=== PATIENT | female | born 1980 | race Two or more races ===

== ENCOUNTER 2025-05-13 10:50 | Emergency (ER) | payer BC ==
[~2025-05-13] VITALS: Ht 162.6 cm; Wt 90.7 kg
[2025-05-13] MEDS: IV NS 0.9% 1,000 ML BAG IV ONE (11:30)
[2025-05-13 11:45] LABS: PLATELET COUNT (AUTO) 97 K/uL (150-450); RED BLOOD CELL COUNT(AUTO) 3.41 MIL/uL (4.0-5.2); RED CELL DISTRIBUTION WIDTH 16.3 % (11.5-15.0); WHITE BLOOD COUNT (AUTO) 2.7 K/uL (4.3-11.0)
[2025-05-13 11:53] LABS: CALCIUM, SERUM 9.0 mg/dL (8.5-10.1); CREATININE 1.0 mg/dL (0.6-1.3); SODIUM SERUM 139 mmol/L (136-145); UREA NITROGEN, BLOOD 20 mg/dL (7-18)
[2025-05-13 11:59] LABS: ASPARTATE AMINOTRANSFERASE 31 U/L (15-37); TOTAL PROTEIN, SERUM 7.0 g/dL (6.4-8.2)
[2025-05-13 12:21] LABS: EOSINOPHILS % (MANUAL) 1 % (0-4); LYMPHOCYTES % (MANUAL) 21 % (16-48); MONOCYTES % (MANUAL) 13 % (0-11.0); NEUTROPHILS % (MANUAL) 65 (42-76); PLATELET ESTIMATE DECREASED
[2025-05-13 13:59] VITALS: BP 130/74; TEMP 98.4; O2SAT 98
== END 2025-05-13 13:59 | disposition home or self-care (01) ==
LOC: ER 10:58
DX: R56.9 Unspecified convulsions (principal); I10 Essential (primary) hypertension; R10.20 Pelvic and perineal pain unspecified side
CPT/HCPCS: 99284; 96360; 93005; 85027; 80048; 80076; 85007; 36415; 84484; 84702; J7030

== ENCOUNTER 2025-05-20 12:55 | Emergency (ER) | payer BC ==
[~2025-05-20] VITALS: Ht 162.6 cm; Wt 90.7 kg
[2025-05-20 13:00] VITALS: TEMP 98.3
[2025-05-20 14:52] LABS: APPEARANCE,URINE CLEAR (CLEAR); BLOOD, URINE Negative Ery/uL (NEGATIVE); LEUKOCYTE ESTERASE ,URINE Negative (NEGATIVE); NITRITE, URINE NEGATIVE (NEGATIVE); UGLUCOSE Negative (NEGATIVE)
[2025-05-20] MEDS ORDERED: KETOROLAC TROMETHAMINE INJ 30 MG/ML VIAL ONE (15:59)
[2025-05-20] MEDS ORDERED: ONDANSETRON 4 MG TAB.RAPDIS ONE (15:59)
[2025-05-20] MEDS: KETOROLAC TROMETHAMINE INJ 30 MG/ML VIAL IM ONE (16:00)
[2025-05-20] MEDS: ONDANSETRON 4 MG TAB.RAPDIS PO ONE (16:00)
[2025-05-20 16:23] LABS: CALCIUM, SERUM 8.5 mg/dL (8.5-10.1); CREATININE 0.9 mg/dL (0.6-1.3); SODIUM SERUM 134.0 mmol/L (136-145); UREA NITROGEN, BLOOD 16.0 mg/dL (7-18)
[2025-05-20 16:24] LABS: PLATELET COUNT (AUTO) 104 K/uL (150-450); RED BLOOD CELL COUNT(AUTO) 3.84 MIL/uL (4.0-5.2); RED CELL DISTRIBUTION WIDTH 16.6 % (11.5-15.0); WHITE BLOOD COUNT (AUTO) 3.4 K/uL (4.3-11.0)
[2025-05-20 16:34] LABS: ASPARTATE AMINOTRANSFERASE 28.0 U/L (15-37); PREGNANCY TEST SERUM QUAN 0.0 mIU/mL (0-6); TOTAL PROTEIN, SERUM 7.7 g/dL (6.4-8.2)
[2025-05-20] MEDS ORDERED: ONDA4TAB5 PO (16:43)
[2025-05-20] MEDS ORDERED: IBUP-1490 PO (16:43)
[2025-05-20] MEDS: MORPHINE SULFATE INJ 2 MG/ML DISP.SYRIN IM ONE (17:10)
[2025-05-20 18:09] VITALS: BP 123/88; O2SAT 98
[2025-05-20 18:23] LABS: EOSINOPHILS % (MANUAL) 2 % (0-4); LYMPHOCYTES % (MANUAL) 18 % (16-48); MONOCYTES % (MANUAL) 3 % (0-11.0); NEUTROPHILS % (MANUAL) 77 (42-76); PLATELET ESTIMATE ADEQUATE
== END 2025-05-20 17:11 | disposition home or self-care (01) ==
LOC: ER 13:03
DX: N83.209 Unspecified ovarian cyst, unspecified side (principal); I10 Essential (primary) hypertension; R10.20 Pelvic and perineal pain unspecified side
CPT/HCPCS: 99285; 76856; 96372; 85027; 80048; 80076; 85007; 81003; 36415; 86850; 84702; J1885; Q0162; J2270